=== PATIENT | male | born 1955 | race Caucasian/White ===

== ENCOUNTER 2018-12-10 14:56 | Emergency (ER) | payer OTHER, MEDICAID ==
[~2018-12-10] VITALS: Ht 177.8 cm; Wt 140.0 kg
--- NOTE | 2018-12-10 15:23 | NUR ---
PT TO ROOM FROM LOBBY
--- NOTE | 2018-12-10 15:28 | NUR ---
PT TO RR WITH STEADY GAIT TO ATTEMPT TO PROVIDE UA SAMPLE.
[2018-12-10] MEDS ORDERED: VITAMIN B12 (15:37)
[2018-12-10] MEDS ORDERED: AMLO10TA8 PO (15:37)
[2018-12-10] MEDS ORDERED: CHLO25TA PO (15:37)
[2018-12-10] MEDS ORDERED: VITA400C43 PO (15:37)
[2018-12-10] MEDS ORDERED: VITAFUSION CALCIUM (15:37)
[2018-12-10] MEDS ORDERED: CHOL100012 PO (15:37)
[2018-12-10] MEDS ORDERED: LOSA50TA14 PO (15:37)
[2018-12-10] MEDS ORDERED: PROBIOTIC (15:37)
[2018-12-10] MEDS ORDERED: TAMS-11 PO (15:37)
--- NOTE | 2018-12-10 15:39 | NUR ---
PT TO ED FOR RIGHT SCROTUM AND RIGH TLOWER ABD SWELLING X1 WEEK. PT DENIES N/V/FEVER AND DENIES URINARY S/S. PT CONNECTED TO MONITORS. VSS. DR. OCHOA TO BS FOR ASSESSMENT. AWIATING ORDERS.
--- NOTE | 2018-12-10 16:03 | NUR ---
PT RESTING IN ROOM. VSS. N ONEEDS EXPRESSED. CALL LIGHT WITHIN REACH. LABS DRAWN ANDURING SENT. AWAITING CT AND US.
[2018-12-10 16:09] LABS: BASOPHILS # (AUTO) 0.04 x10^3/uL (0-0.1); BASOPHILS % (AUTO) 1 % (0-1); EOSINOPHILS # (AUTO) 0.14 x10^3/uL (0-0.4); EOSINOPHILS % (AUTO) 2 % (1-7); LYMPHOCYTES % (AUTO) 22 % (22-44); MD NO; MEAN CORPUSCULAR HEMOGLOBIN 28.7 pg (27.5-34.5); MEAN CORPUSCULAR HGB CONC 33.3 g/dL (33.2-36.2); MEAN CORPUSCULAR VOLUME 86.1 fL (81-97); MEAN PLATELET VOLUME 8.9 fL (7.4-10.4); MONOCYTES # (AUTO) 0.48 x10^3/uL (0.2-0.8); MONOCYTES % (AUTO) 5 % (2-9); NEUTROPHILS # (AUTO) 6.51 x10^3/uL (1.8-6.8); NEUTROPHILS % (AUTO) 71 % (42-75); PLATELET COUNT 184 x10^3/uL (130-400); RED BLOOD COUNT 5.14 x10^6/uL (4.38-5.82); RED CELL DISTRIBUTION WIDTH 13.2 % (9.4-14.8)
[2018-12-10 16:19] LABS: ALANINE AMINOTRANSFERASE 31 U/L (12-78); ALBUMIN 3.8 g/dL (3.4-5.0); ANION GAP 7 mmol/L (5-15); CALCIUM 8.3 mg/dL (8.5-10.1); CHLORIDE 102 mmol/L (98-107)
--- NOTE | 2018-12-10 16:20 | NUR ---
pt to imaging.
[2018-12-10 16:22] LABS: ALKALINE PHOSPHATASE 57 U/L (45-117); BILIRUBIN,TOTAL 0.4 mg/dL (0.2-1.0); CREATININE 1.12 mg/dL (0.7-1.3); TOTAL PROTEIN 7.2 g/dL (6.4-8.2)
[2018-12-10 16:23] LABS: MICROSCOPIC NOT IND
[2018-12-10 16:30] LABS: CULTURE INDICATED? NO
--- NOTE | 2018-12-10 16:50 | NUR ---
pt back from imaging.
[2018-12-10 16:54] VITALS: BP 131/62
--- NOTE | 2018-12-10 16:55 | NUR ---
PT RESTING IN ROOM. VSS. NO NEEDS EXPRESSED. CALL LIGHT WITHIN REACH. CT COMPLETE. AWAITING RESULTS AND US.
== END 2018-12-10 18:25 | disposition home or self-care (01) ==
LOC: ED 17:25
DX: K40.90 Unilateral inguinal hernia, without obstruction or gangrene, not specified as recurrent (principal)
CPT/HCPCS: 36415; 74176; 76870; 80053; 81003; 85025; 99284